=== PATIENT | male | born 1995 | race American Indian/Alaskan Native ===

== ENCOUNTER 2021-02-19 00:32 | Emergency (ER) | payer SELFPAY ==
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
[2021-02-19 01:46] VITALS: BP 141/89
== END 2021-02-19 01:46 ==
LOC: ED 00:32
DX: Z04.1 Encounter for examination and observation following transport accident (principal); V49.49XA Driver injured in collision with other motor vehicles in traffic accident, initial encounter; Y93.89 Activity, other specified; Y92.89 Other specified places as the place of occurrence of the external cause; Y99.8 Other external cause status
CPT/HCPCS: 99282